=== PATIENT | male | born 1965 | race Caucasian/White ===

== ENCOUNTER 2021-06-12 08:10 | Day surgery (SDC) | payer MEDICAID, SELFPAY ==
[~2021-06-12] VITALS: Ht 175.3 cm; Wt 92.5 kg
[2021-06-12] MEDS ORDERED: SIMETHICONE 40 MG/0.6 ML ML ONE (09:24)
[2021-06-12] MEDS: MIDAZOLAM HCL 5 MG/5 ML VIAL ONE ×2 (09:26→09:29)
[2021-06-12] MEDS: MEPERIDINE 100 MG INJ. 100 MG/ML VIAL ONE ×2 (09:26→09:29)
[2021-06-12 13:42] VITALS: BP_SYST 110
== END 2021-06-12 11:08 | disposition home or self-care (01) ==
LOC: SDS 08:10 → SMU 08:12 → SDS 11:08
PROVIDERS: ATTEND Internal Medicine Gastroenterology
DX: Z12.11 Encounter for screening for malignant neoplasm of colon (principal); D12.4 Benign neoplasm of descending colon; K64.8 Other hemorrhoids; Z80.0 Family history of malignant neoplasm of digestive organs; Z87.891 Personal history of nicotine dependence; Z79.899 Other long term (current) drug therapy
CPT/HCPCS: 36415; 45380; 87426; 88305; 99152; G0378; J2175; J2250; 45385